=== PATIENT | female | born 1960 | race Hispanic/Latino ===

== ENCOUNTER 2018-03-01 13:00 | Outpatient (RCR) | payer OTHER | END 2018-03-22 | LOC: PT 13:00 | PROVIDERS: ATTEND Internal Medicine | DX: M47.897 Other spondylosis, lumbosacral region (principal); E13.9 Other specified diabetes mellitus without complications ==

== ENCOUNTER → 2018-05-27 | Outpatient (CLI) | payer OTHER ==
--- NOTE | 2018-05-27 17:02 | Diagnostic Imaging Report ---
RENAL ULTRASOUND TECHNIQUE: Ultrasound evaluation of the KIDNEYS. Color Doppler evaluation was utilized to supplement the evaluation. HISTORY: Gross hematuria COMPARISON: None available. DISCUSSION: RIGHT KIDNEY: The right kidney measures 12 cm in length. The cortex measures 1.5 cm in thickness. Parenchyma is within normal limits. Questionable minimal hydronephrosis. LEFT KIDNEY: The left kidney measures 9 cm in length. The cortex measures 1.9 cm in thickness. An anechoic 1.3 x 1 x 1.3 cm focus at the lateral aspect of the interpolar region. An echogenic 0.5 x 0.4 x 0.4 cm focus at the lateral aspect of the interpolar region with associated shadowing. Questionable minimal hydronephrosis. BLADDER: Unremarkable, bilateral ureteral jets seen. Post void residual 27 cc. IMPRESSION: 1. A 0.5 cm left renal stone. 2. Questionable minimal bilateral hydronephrosis. Signed by: Dr. Delano Lopez D.O., M.M.M. on 05/27/2018 4:58 PM
== END ==
LOC: US 15:17
PROVIDERS: ATTEND Internal Medicine
DX: R31.0 Gross hematuria (principal)
CPT/HCPCS: 76770; 76857

== ENCOUNTER → 2018-08-26 | Outpatient (CLI) | payer OTHER ==
--- NOTE | 2018-08-26 20:41 | Diagnostic Imaging Report ---
EXAM: Abdomen 1 View INDICATION: ^[id number] ^[id number] ^CALCULUS OF KIDNEY; GROSS HEMATURIA COMPARISON: Renal ultrasound dated 05/27/2018 FINDINGS: Approximately 0.8 cm left renal inferior pole calculus. Pelvic phleboliths. Nonobstructive bowel gas pattern. No signs of neural peritoneum. No acute osseous or mildly. IMPRESSION: 1. Approximately 0.8 cm left renal inferior pole calculus. 2. Nonobstructive bowel gas pattern. Signed by: Dr. Anibal Joaquin MD on 08/26/2018 8:38 PM
== END ==
LOC: RAD 13:35
PROVIDERS: ATTEND Urology
DX: N20.0 Calculus of kidney (principal); R31.0 Gross hematuria
CPT/HCPCS: 74018

== ENCOUNTER 2021-05-29 02:13 | Emergency (ER) | payer BC, OTHER ==
[~2021-05-29] VITALS: Ht 162.6 cm; Wt 74.8 kg
[2021-05-29] MEDS ORDERED: KETOROLAC TROMETHAMINE 30 MG/ML VIAL IV STA (02:21)
[2021-05-29 02:39] LABS: BASOPHILS % 0.2 % (0.0-1.0); EOSINOPHILS # (AUTO) 0.1 (0.0-0.4); EOSINOPHILS % 1.3 % (0.0-6.0); HEMATOCRIT 38.1 % (34.2-44.1); HEMOGLOBIN 12.6 g/dL (12.0-16.0); LYMPHOCYTES # (AUTO) 2.8 (1.0-3.2); LYMPHOCYTES % 51.6 % (18.0-39.1); MEAN CORPUSCULAR HEMOGLOBIN 32.1 pg (28-32); MEAN CORPUSCULAR HGB CONC 33.1 g/dL (31-35); MEAN CORPUSCULAR VOLUME 97.2 fL (81-99); MONOCYTES # (AUTO) 0.5 (0.2-0.8); NEUTROPHILS % 37.7 % (38.7-80.0); PLATELET COUNT 271 x10e3/uL (140-360); RED BLOOD COUNT 3.92 x10e6/uL (3.6-5.1); RED CELL DISTRIBUTION WIDTH 13.1 % (11.7-14.4)
[2021-05-29 02:44] LABS: CLARITY,URINE CLEAR (CLEAR); COLOR,URINE YELLOW (YELLOW); KETONES,URINE NEGATIVE (NEGATIVE); LEUKOCYTE ESTERASE ,URINE NEGATIVE (NEGATIVE); NITRITE,URINE NEGATIVE (NEGATIVE); PROTEIN,URINE DIPSTICK NEGATIVE (NEGATIVE); URINE UROBILINOGEN 0.2 mg/dL (0.2 - 1)
[2021-05-29 02:48] LABS: BACTERIA,URINE FEW /HPF; EPITHELIAL CELLS,URINE MODERATE /LPF; WBC,URINE (MAN) 0-5 /HPF (0-5)
[2021-05-29 02:54] LABS: ANION GAP 13.7 mmol/L (8-16); BLOOD UREA NITROGEN 14 mg/dL (7-26); BUN/CREATININE RATIO 21 (6-25); CALCIUM 9.2 mg/dL (8.4-10.2); CARBON DIOXIDE 25 mmol/L (22-29); CHLORIDE 105 mmol/L (98-107); CREATINE KINASE 68 IU/L (29-168); CREATININE, SERUM 0.67 mg/dL (0.57-1.11); EST GLOMERULAR FILTRATION RATE 89 ML/MIN (60-); GLUCOSE 134 mg/dL (74-118); POTASSIUM 3.7 mmol/L (3.5-5.1); SODIUM 140 mmol/L (136-145)
[2021-05-29 04:23] VITALS: BP 129/90
== END 2021-05-29 04:25 | disposition home or self-care (01) ==
LOC: ER 02:23
DX: R09.1 Pleurisy (principal); R94.31 Abnormal electrocardiogram [ECG] [EKG]
CPT/HCPCS: 36415; 71045; 74176; 80048; 81001; 82550; 82553; 84484; 85025; 85379; 93005; 99284; J1885

== ENCOUNTER 2021-05-29 16:44 | Emergency (ER) | payer BC ==
[~2021-05-29] VITALS: Ht 162.6 cm; Wt 74.8 kg
[2021-05-29] MEDS ORDERED: KETOROLAC TROMETHAMINE 60 MG/2 ML VIAL IM ONE (17:15)
[2021-05-29] MEDS ORDERED: KETOROLAC TROMETHAMINE 60 MG/2 ML VIAL ONE (17:28)
== END 2021-05-29 17:43 | disposition home or self-care (01) ==
LOC: ER 17:07
DX: R09.1 Pleurisy (principal); M54.9 Dorsalgia, unspecified; G89.29 Other chronic pain
CPT/HCPCS: 99282; J1885

== ENCOUNTER → 2022-09-25 | Day surgery (SDC) | payer BC ==
[~2022-09-25] MED LIST: AMBIEN10 MG PO; BENICAR5 MG PO; CLONAZEPAM0.5 MG PO; GLUCAGON FOR INJ 1 MG VIAL ONE; HAIR SKIN NAIL1 EACH PO; HYDROCODONE BIT10 MG PO; HYOSCYAMINE SULFATE 0.5 MG/ML INJ ONE; LIDOCAINE HCL 2% LOCAL INJ 5 ML SDV VIAL INJ ONE; METOCLOPRAMIDE HCL 10 MG/2ML VIAL ONE; MIDAZOLAM HCL 2 MG/2 ML VIAL ONE; PHENTERMINE H37.5 M1 PO; PROPOFOL IV EMULSION 10 MG/ML 20 ML VIAL ONE; PROPOFOL IV EMULSION 50 ML IV ONE; RYBELSUS7 MG PO; ULTRAM 50MG50 MG PO; VITAFOL-OB+DHA1 EACH PO; VITAMIN D250 MCG PO
[2022-09-25 10:34] LABS: BASOPHILS % 0.3 % (0.0-1.0); EOSINOPHILS % 0.9 % (0.0-6.0); HEMATOCRIT 38.2 % (34.2-44.1); HEMOGLOBIN 12.1 g/dL (12.0-16.0); LYMPHOCYTES # (AUTO) 1.4 (1.0-3.2); LYMPHOCYTES % 41.9 % (18.0-39.1); MEAN CORPUSCULAR HEMOGLOBIN 33.3 pg (28-32); MEAN CORPUSCULAR HGB CONC 31.7 g/dL (31-35); MEAN CORPUSCULAR VOLUME 105.2 fL (81-99); MONOCYTES # (AUTO) 0.2 (0.2-0.8); MONOCYTES % 6.8 % (4.4-11.3); NEUTROPHILS # (AUTO) 1.6 (2.1-6.9); NEUTROPHILS % 49.8 % (38.7-80.0); PLATELET COUNT 227 x10e3/uL (140-360); RED BLOOD COUNT 3.63 x10e6/uL (3.6-5.1); RED CELL DISTRIBUTION WIDTH 11.6 % (11.7-14.4)
[2022-09-25 10:35] VITALS: BP 112/80
[2022-09-25 11:03] LABS: ALBUMIN 3.6 g/dL (3.5-5.0); BILIRUBIN,DIRECT 0.2 mg/dL (0.0-0.5)
== END | disposition home or self-care (01) ==
LOC: OR 07:14
PROVIDERS: ATTEND Internal Medicine Gastroenterology
DX: K21.9 Gastro-esophageal reflux disease without esophagitis (principal); D12.2 Benign neoplasm of ascending colon; D12.3 Benign neoplasm of transverse colon; K29.50 Unspecified chronic gastritis without bleeding; B96.81 Helicobacter pylori [H. pylori] as the cause of diseases classified elsewhere; K22.10 Ulcer of esophagus without bleeding; K57.30 Diverticulosis of large intestine without perforation or abscess without bleeding; K64.8 Other hemorrhoids; I10 Essential (primary) hypertension; E11.9 Type 2 diabetes mellitus without complications; R00.1 Bradycardia, unspecified; F41.9 Anxiety disorder, unspecified; N20.0 Calculus of kidney; Z01.810 Encounter for preprocedural cardiovascular examination; Z79.899 Other long term (current) drug therapy; Z86.16 Personal history of COVID-19
CPT/HCPCS: 36415; 43239; 45380; 80076; 82948; 85025; 93005; C9113; J1610; J1980; J2001; J2250; J2704 ×2; J2765; 45378

== ENCOUNTER 2024-03-22 07:00 | Emergency (ER) | payer SELFPAY ==
[~2024-03-22] VITALS: Ht 162.6 cm; Wt 72.6 kg
[~2024-03-22 07:00] MED LIST changes: -GLUCAGON FOR INJ 1 MG VIAL ONE; -HYOSCYAMINE SULFATE 0.5 MG/ML INJ ONE; -LIDOCAINE HCL 2% LOCAL INJ 5 ML SDV VIAL INJ ONE; -METOCLOPRAMIDE HCL 10 MG/2ML VIAL ONE; -MIDAZOLAM HCL 2 MG/2 ML VIAL ONE; -PROPOFOL IV EMULSION 10 MG/ML 20 ML VIAL ONE; -PROPOFOL IV EMULSION 50 ML IV ONE
[2024-03-22 07:27] LABS: BASOPHILS % 0.2 % (0.0-1.0); HEMOGLOBIN 13.6 g/dL (12.0-16.0); LYMPHOCYTES # (AUTO) 0.9 (1.0-3.2); LYMPHOCYTES % 10.4 % (18.0-39.1); MEAN CORPUSCULAR HEMOGLOBIN 33.3 pg (28-32); MEAN CORPUSCULAR HGB CONC 34.9 g/dL (31-35); MEAN CORPUSCULAR VOLUME 95.6 fL (81-99); MONOCYTES # (AUTO) 0.5 (0.2-0.8); MONOCYTES % 5.9 % (4.4-11.3); NEUTROPHILS # (AUTO) 6.8 (2.1-6.9); NEUTROPHILS % 83.1 % (38.7-80.0); PLATELET COUNT 267 x10e3/uL (140-360); RED BLOOD COUNT 4.08 x10e6/uL (3.6-5.1); RED CELL DISTRIBUTION WIDTH 12.2 % (11.7-14.4); WHITE BLOOD COUNT 8.14 x10e3/uL (4.8-10.8)
[2024-03-22 07:35] LABS: BILIRUBIN,URINE NEGATIVE (NEGATIVE); CLARITY,URINE CLEAR (CLEAR); COLOR,URINE YELLOW (YELLOW); GLUCOSE, URINE NEGATIVE (NEGATIVE); KETONES,URINE NEGATIVE (NEGATIVE); LEUKOCYTE ESTERASE ,URINE NEGATIVE (NEGATIVE); NITRITE,URINE NEGATIVE (NEGATIVE); PH,URINE 6.5 (5 - 7); PROTEIN,URINE DIPSTICK TRACE (NEGATIVE); URINE UROBILINOGEN 0.2 mg/dL (0.2 - 1)
[2024-03-22 07:40] LABS: INR 0.94; PROTHROMBIN TIME 13.2 seconds (11.9-14.5)
[2024-03-22 07:41] LABS: PARTIAL THROMBOPLASTIN TIME 30.7 seconds (23.8-35.5)
[2024-03-22] MEDS: SODIUM CHLORIDE 0.9% 1000ML 1,000 ML IV ONE (07:47)
[2024-03-22 07:49] LABS: ALBUMIN 4.1 g/dL (3.5-5.0); ALBUMIN/GLOBULIN RATIO 1.1 (0.8-2.0); ANION GAP 14.5 mmol/L (8-16); BILIRUBIN,TOTAL 0.5 mg/dL (0.2-1.2); CALCIUM 9.4 mg/dL (8.4-10.2); CREATININE, SERUM 0.7 mg/dL (0.57-1.11); POTASSIUM 3.5 mmol/L (3.5-5.1); TOTAL PROTEIN 7.8 g/dL (6.5-8.1)
[2024-03-22] MEDS: IBUPROFEN 400 MG TAB PO ONE (07:49)
[2024-03-22] MEDS: ACETAMINOPHEN 325 MG TAB PO ONE (07:49)
[2024-03-22 07:51] LABS: BACTERIA,URINE FEW /HPF; EPITHELIAL CELLS,URINE FEW /LPF; RBC,URINE 0-5 /HPF (0-5); WBC,URINE (MAN) 0-5 /HPF (0-5); YEAST,URINE MODERATE
[2024-03-22] MEDS ORDERED: PAXLOVID 300-11 EAC1 PO (08:26)
[2024-03-22] MEDS ORDERED: ZITHROMAX500 MG PO (08:28)
[2024-03-22] MEDS ORDERED: ONDANSETRON ODT4 MG PO (08:29)
[2024-03-22 09:15] VITALS: PULSE 86; RESP 16; TEMP 98.9; O2SAT 96
== END 2024-03-22 09:20 | disposition home or self-care (01) ==
LOC: ER 07:15
DX: R50.9 Fever, unspecified (principal); U07.1 COVID-19; R05.9 Cough, unspecified; J40 Bronchitis, not specified as acute or chronic; E86.0 Dehydration; R19.7 Diarrhea, unspecified
CPT/HCPCS: 36415; 71045; 80053; 81001; 83605; 85025; 85610; 85730; 87040; 87086; 87186; 87400; 99283; J0696; J7030; U0002